=== PATIENT | female | born 1950 | race Caucasian/White ===

== ENCOUNTER 2016-04-14 18:07 | Emergency (ER) | payer MEDICAID ==
[~2016-04-14] VITALS: Ht 167.6 cm; Wt 163.6 kg
[2016-04-14] MEDS ORDERED: METF500T4 PO (18:29)
[2016-04-14] MEDS ORDERED: HEART PO (18:29)
[2016-04-14] MEDS ORDERED: ASPI81 PO (18:29)
[2016-04-14] MEDS ORDERED: LISI-662 PO (18:29)
[2016-04-14 18:31] LABS: GLUCOSE,POINT OF CARE 86 MG/DL (70-110)
[2016-04-14 19:04] LABS: BASOPHILS % (AUTO) 0.4 % (0.0-2.0); EOSINOPHILS % (AUTO) 1.6 % (1.0-6.0); HEMATOCRIT 41.7 % (36-46); LYMPHOCYTES # (AUTO) 2.4 K/uL (1.0-4.8); LYMPHOCYTES % (AUTO) 17.3 % (22.0-44.0); MEAN CORPUSCULAR HEMOGLOBIN 26.1 pg (26.0-34.0); MEAN CORPUSCULAR HGB CONC 31.2 G/dL (31.0-37.0); MEAN CORPUSCULAR VOLUME 84 fL (80-100); NEUTROPHILS # (AUTO) 10.3 K/uL (1.8-7.7); NEUTROPHILS % (AUTO) 73.7 % (40.0-70.0); PLATELET COUNT (AUTO) 336 K/uL (150-450); RED BLOOD CELL COUNT(AUTO) 4.98 MIL/uL (4.00-5.20); RED CELL DISTRIBUTION WIDTH 17.5 % (11.5-14.5)
[2016-04-14 19:15] LABS: POTASSIUM 4.2 mmol/L (3.5-5.1)
[2016-04-14 19:25] LABS: ALBUMIN 3.3 g/dL (3.4-5.0); BILIRUBIN,TOTAL 0.2 mg/dL (0.1-1.0); TOTAL PROTEIN, SERUM 7.4 g/dL (6.4-8.2)
[2016-04-14 19:51] LABS: RBC MORPHOLOGY COMMENT ABNORMAL RBC MORPH
[2016-04-14 20:32] LABS: APPEARANCE,URINE TURBID (CLEAR); GLUCOSE, URINE (UA) NEGATIVE (NEGATIVE); KETONES,URINE TRACE mg/dL (NEGATIVE); LEUKOCYTE ESTERASE ,URINE MODERATE (NEGATIVE); OCCULT BLOOD,URINE LARGE (NEGATIVE); PROTEIN,URINE SEE CONFIRM (NEGATIVE)
[2016-04-14 20:40] LABS: ADD UA MICROSCOPIC YES
[2016-04-14 20:41] LABS: RBC,URINE >100 /HPF (0-2); SQUAMOUS EPITHELIAL CELL,UR Moderate /LPF (None Seen); SULFOSALICYLIC ACID,URINE 1+ (Negative); WBC,URINE 26-50 /HPF (0-5)
[2016-04-14] MEDS ORDERED: OxyCODONE HCL/ACETAMINOPHEN 10-325 MG TABLET PO ONE (20:45)
[2016-04-14] MEDS ORDERED: LIDOCAINE HCL/PF 1% 2 ML VIAL IM ONE (21:00)
[2016-04-14] MEDS ORDERED: CefTRIAXone SODIUM 1 GM/VIAL IM ONE (21:00)
[2016-04-14] MEDS ORDERED: LISINOPRIL 10 MG TABLET PO ONE (21:00)
[2016-04-14 21:13] VITALS: BP 140/72
== END 2016-04-14 21:20 | disposition home or self-care (01) ==
LOC: EMS 18:09
DX: N39.0 Urinary tract infection, site not specified (principal); R51 Headache; E66.9 Obesity, unspecified; M19.90 Unspecified osteoarthritis, unspecified site; E11.9 Type 2 diabetes mellitus without complications; I10 Essential (primary) hypertension; J45.909 Unspecified asthma, uncomplicated; Z91.14 Patient's other noncompliance with medication regimen; Z68.43 Body mass index [BMI] 50.0-59.9, adult; Z79.82 Long term (current) use of aspirin
CPT/HCPCS: 36415; 71010; 80053; 81001; 81002; 82962; 84484; 85025; 87086; 93005; 96372; 99285; J0696; J3490